=== PATIENT | female | born 1945 | race Caucasian/White ===

== ENCOUNTER 2016-11-12 13:31 | Emergency (ER) | payer MEDICARE ==
[~2016-11-12] VITALS: Ht 160 cm; Wt 72.6 kg
[2016-11-12] MEDS ORDERED: ASPIRIN LITE C325 MG PO (13:41)
[2016-11-12] MEDS ORDERED: ATORVASTATIN CA40 M1 PO (13:42)
[2016-11-12] MEDS ORDERED: AMLODIPINE BESYL5 MG PO (13:42)
[2016-11-12] MEDS ORDERED: PROZAC20 MG PO (13:43)
[2016-11-12] MEDS ORDERED: ISOSORBIDE DINIT5 M2 PO (13:43)
[2016-11-12] MEDS ORDERED: LOPRESSOR100 M1 PO (13:44)
[2016-11-12] MEDS ORDERED: NEXIUM40 MG/PACK PO (13:45)
[2016-11-12] MEDS ORDERED: VESICARE5 MG PO (13:46)
[2016-11-12] MEDS ORDERED: DIOVAN160 M2 PO (13:46)
[2016-11-12] MEDS ORDERED: DYRENIUM50 MG PO (13:48)
[2016-11-12 14:38] LABS: BASO # 0.1 10*3/uL (0.0-0.1); BASO % 0.9 % (0.0-1.0); EOS # 0.1 10*3/uL (0.0-0.4); EOS % 1.7 % (1.0-4.0); HEMATOCRIT 36.5 % (37.0-47.0); HEMOGLOBIN 12.3 g/dl (12.0-16.0); LYMPH # 1.9 10*3/uL (1.3-4.4); LYMPH % 28.6 % (27.0-41.0); MEAN CELL VOLUME 83.9 fl (81.0-99.0); MEAN CORPUSCULAR HGB 28.3 pg (27.0-31.0); MEAN CORPUSCULAR HGB CONC 33.7 g/dl (33.0-37.0); MONO # 0.6 10*3/uL (0.1-1.0); MONO % 8.6 % (3.0-9.0); NEUT # 3.9 10*3/uL (2.3-7.9); PLATELET COUNT AUTOMATED 300 10*3/uL (130-400); RED BLOOD COUNT 4.35 10*6/uL (4.10-5.10); RED CELL DISTRI WIDTH 13.4 % (0-14.5); WHITE BLOOD COUNT 6.5 10*3/uL (4.8-10.8)
[2016-11-12 14:46] LABS: PROTHROMBIN TIME 10.9 SECONDS (9.0-12.4)
[2016-11-12 14:54] LABS: ALBUMIN 3.3 gm/dl (3.1-4.5); ALKALINE PHOSPHATASE 144 U/L (45-117); BILIRUBIN, TOTAL 0.7 mg/dl (0.2-1.0); BUN 13 mg/dl (7-24); CARBON DIOXIDE 25 mmol/L (21-32); CHLORIDE 99 mmol/L (98-107); CKMB < 0.5 ng/ml (0.5-3.6); CPK 36 U/L (26-192); EST GLOM FILT AFRICAN AMERICAN > 60 ml/min; GLUCOSE 116 mg/dL (65-99); LDH 117 U/L (84-246); MAGNESIUM 1.9 mg/dL (1.5-2.1); POTASSIUM 3.6 mmol/L (3.5-5.1); SGOT/AST 24 IU/L (3-35); SGPT/ALT 38 U/L (12-78); SODIUM 132 mmol/L (136-145); TOTAL PROTEIN 6.8 gm/dL (6.4-8.2); TROPONIN I < 0.015 ng/ml (<0.045)
[2016-11-12] MEDS ORDERED: VIBRAMYCIN100 MG PO (16:24)
[2016-11-12] MEDS ORDERED: DELTASONE20 M1 PO (16:24)
== END 2016-11-12 16:46 | disposition home or self-care (01) ==
LOC: ED 13:31
PROVIDERS: Physician Assistant
DX: J45.901 Unspecified asthma with (acute) exacerbation (principal); Z79.82 Long term (current) use of aspirin; Z79.899 Other long term (current) drug therapy